=== PATIENT | female | born 1985 | race Caucasian/White ===

== ENCOUNTER 2017-05-02 23:10 | Emergency (ER) | payer OTHER ==
[~2017-05-02] VITALS: Ht 162.6 cm; Wt 58.7 kg
[2017-05-03 00:09] LABS: HEMATOCRIT 40.1 % (36.0-46.0); MCH 28.8 PG (29.0-34.0); MCHC 33.2 G/DL (30.0-36.0); MCV 86.8 FL (83-99); MEAN PLAT.VOLUME 10.5 uM^3 (9.5-12.4); PLATELET COUNT 232 K/uL (156-360); RBC DIS.WIDTH-CV 12.5 % (11.8-14.6); RBC DIS.WIDTH-SD 39.8 % (39-53); RED BLOOD COUNT 4.62 M/uL (3.80-5.20); WHITE BLOOD COUNT 17.4 K/uL (4.1-10.2)
[2017-05-03 00:20] LABS: CHLORIDE 107 mEq/L (99-109); POTASSIUM 3.7 mEq/L (3.7-5.4); SODIUM 143 mEq/L (136-147)
[2017-05-03 00:22] LABS: GLUCOSE 88 mg/dL (70-99)
[2017-05-03 00:23] LABS: ANION GAP 14 MEQ/L (2-14)
[2017-05-03 00:26] LABS: GFR ESTIMATE (CALCULATED) > 59 mL/min/; UREA NITROGEN (BUN) 16 mg/dL (9-23)
[2017-05-03 00:28] LABS: CREATINE KINASE 178 IU/L (1-294)
[2017-05-03 00:36] LABS: QUANTITATIVE HCG < 4.0 MIU/ML
[2017-05-03 00:59] VITALS: BP 110/71
== END 2017-05-03 01:01 | disposition home or self-care (01) ==
LOC: EME 23:10 → EDBD 23:10 → EME 05-03 01:01
PROVIDERS: Emergency Medicine
DX: G62.9 Polyneuropathy, unspecified (principal); Z86.79 Personal history of other diseases of the circulatory system
CPT/HCPCS: 80048; 82550; 84702; 85027; 93005; 99281; 99285; J7030